=== PATIENT | female | born 1960 | race African-American/Black ===

== ENCOUNTER 2017-05-13 06:06 | Emergency (ER) | payer MEDICARE ==
[~2017-05-13] VITALS: Ht 160 cm; Wt 61.0 kg
[~2017-05-13 06:06] MED LIST: CYAN100081 PO; FOLI-43 PO; MULT-1146 PO; OMEP20CA4 PO; THIA100T13 PO
[2017-05-13] MEDS ORDERED: ACETAMINOPHEN 325MG TABLET PO ONE (09:15)
[2017-05-13 10:47] LABS: CLARITY URINE CLEAR (CLEAR); COLOR URINE YELLOW (YELLOW); GLUCOSE URINE NEGATIVE (NEGATIVE); KETONES URINE NEGATIVE (NEGATIVE); LEUKOCYTE ESTERASE URINE 1+ (NEGATIVE); NITRITE URINE NEGATIVE (NEGATIVE); OCCULT BLOOD URINE NEGATIVE (NEGATIVE); PROTEIN URINE TRACE (NEGATIVE); SPECIFIC GRAVITY URINE 1.015 (1.005-1.030); UROBILINOGEN URINE 0.2 E.U./dL (0.2-1.0)
[2017-05-13 12:10] VITALS: BP 128/81
== END 2017-05-13 12:41 | disposition home or self-care (01) ==
LOC: ER 06:06
DX: R10.13 Epigastric pain (principal); F17.200 Nicotine dependence, unspecified, uncomplicated; Z88.0 Allergy status to penicillin; Z88.2 Allergy status to sulfonamides; Y04.0XXA Assault by unarmed brawl or fight, initial encounter; Y93.89 Activity, other specified; Y92.009 Unspecified place in unspecified non-institutional (private) residence as the place of occurrence of the external cause; Y99.8 Other external cause status
CPT/HCPCS: 81001; 99283

== ENCOUNTER 2018-03-23 15:08 | Emergency (ER) | payer MEDICARE ==
[~2018-03-23] VITALS: Ht 157.5 cm; Wt 64.0 kg
[2018-03-23] MEDS ORDERED: HYDROCODONE/ACETAMINOPHEN 5/325MG TABLET PO ONE (21:30)
[2018-03-23 21:54] LABS: BASOPHILS % 1.2 % (0.0-2.0); EOSINOPHILS % 2.8 % (0.0-5.0); HEMATOCRIT. 38.1 % (36.0-48.0); HEMOGLOBIN. 12.9 g/dL (12.0-16.0); LYMPHOCYTES % 56.1 % (20.0-50.0); MEAN CORPUSCULAR HEMOGLOBIN 32.9 pg (28.0-32.0); MEAN CORPUSCULAR VOLUME 97.6 fL (81.0-99.0); MONOCYTES % 5.7 % (2.0-8.0); NEUTROPHILS % 34.2 % (40.0-76.0); PLATELET 169 x1000/uL (130-400); RED BLOOD CELL COUNT 3.91 mill/uL (4.2-5.4); RED CELL DISTRIBUTION WIDTH 14.4 % (11.6-14.6)
[2018-03-23 21:59] LABS: CHLORIDE 108 mEq/L (98-107)
[2018-03-23] MEDS ORDERED: IBUPROFEN 600MG TABLET PO NR (23:30)
[2018-03-24 00:54] VITALS: BP 117/68
== END 2018-03-24 00:55 | disposition home or self-care (01) ==
LOC: ER 15:08
DX: M79.605 Pain in left leg (principal); M79.604 Pain in right leg; K21.9 Gastro-esophageal reflux disease without esophagitis; F17.200 Nicotine dependence, unspecified, uncomplicated; Z88.0 Allergy status to penicillin; Z88.2 Allergy status to sulfonamides
CPT/HCPCS: 36415; 80048; 85025; 99283

== ENCOUNTER 2024-10-12 09:59 | Emergency (ER) | payer MEDICARE, OTHER ==
[~2024-10-12] VITALS: Ht 162.6 cm; Wt 73.0 kg
[2024-10-12 10:04] VITALS: O2SAT 99
[2024-10-12] MEDS ORDERED: POLY119P2 MT (10:40)
[2024-10-12 10:44] VITALS: BP 128/75; PULSE 87; RESP 15; TEMP 37; O2SAT 100
== END 2024-10-12 10:50 | disposition home or self-care (01) ==
LOC: ER 09:59
DX: K62.3 Rectal prolapse (principal); I10 Essential (primary) hypertension; F10.90 Alcohol use, unspecified, uncomplicated; Z79.899 Other long term (current) drug therapy; Z87.19 Personal history of other diseases of the digestive system; Z88.0 Allergy status to penicillin; Z88.2 Allergy status to sulfonamides; Z98.890 Other specified postprocedural states; Y90.9 Presence of alcohol in blood, level not specified
CPT/HCPCS: 99283